=== PATIENT | female | born 1990 | race Caucasian/White ===

== ENCOUNTER 2021-11-01 18:48 | Emergency (ER) | payer MEDICAID, OTHER ==
[~2021-11-01] VITALS: Ht 165.1 cm; Wt 110.0 kg
[2021-11-01 19:18] VITALS: BP 135/82
[2021-11-01] MEDS ORDERED: CEPH-585 PO (20:43)
[2021-11-01] MEDS ORDERED: cephalexin 250mg capsule PO ONE (20:45)
[2021-11-01] MEDS ORDERED: ibuprofen tablet 400 MG TABLET PO ONE (20:45)
== END 2021-11-01 21:08 | disposition home or self-care (01) ==
LOC: ER 18:49
DX: S61.217A Laceration without foreign body of left little finger without damage to nail, initial encounter (principal); F41.9 Anxiety disorder, unspecified; F32.9 Major depressive disorder, single episode, unspecified; Z79.2 Long term (current) use of antibiotics; W18.39XA Other fall on same level, initial encounter; Y93.89 Activity, other specified; Y92.89 Other specified places as the place of occurrence of the external cause; Y99.8 Other external cause status
CPT/HCPCS: 12002; 99283; A6258